=== PATIENT | male | born 1995 | race Caucasian/White ===

== ENCOUNTER 2021-10-27 06:53 | Emergency (ER) | payer OTHER ==
[2021-10-27 07:24] LABS: BASOPHIL 0.2 % (0-2); EOSINOPHIL 0.6 % (0-5); HCT 41.8 % (42.0-52.0); HGB 14.2 g/dl (13.2-18.0); LYMPHOCYTE 41.8 % (15-48); MCH 28.2 pg (25.0-31.0); MCV 82.9 fL (78.0-100.0); MONOCYTE 6.9 % (0-12); NEUTROPHIL 50.1 % (41-80); NRBC 0; PLT 281 K/uL (150-400); RBC 5.04 M/uL (4.70-6.00); RDW 12.1 % (11.5-14.0); WBC 8.1 K/uL (4.0-10.5)
[2021-10-27 09:43] LABS: BUN/CREAT RATIO (CALC) 16.3 RATIO; CREATININE 0.86 mg/dL (0.67-1.17); GLOBULIN (CALCULATION) 2.6 g/dL; POTASSIUM 3.2 mmol/L (3.5-5.1); TOTAL PROTEIN 6.6 g/dL (6.4-8.2)
[2021-10-27 15:59] LABS: BILIRUBIN - TOTAL 0.3 mg/dL (0.2-1.0)
== END 2021-10-27 09:28 | disposition other institution (70) ==
LOC: FER 06:53
PROVIDERS: Internal Medicine
DX: S27.0XXA Traumatic pneumothorax, initial encounter (principal); S22.42XA Multiple fractures of ribs, left side, initial encounter for closed fracture; S80.212A Abrasion, left knee, initial encounter; S80.211A Abrasion, right knee, initial encounter; S00.31XA Abrasion of nose, initial encounter; Z23 Encounter for immunization; Z28.310 Unvaccinated for COVID-19; V49.40XA Driver injured in collision with unspecified motor vehicles in traffic accident, initial encounter
CPT/HCPCS: 36415; 70450; 70486; 71045; 71275; 72125; 72128; 72131; 73560; 80053; 85025; 90471; 90715; 96374; 96375; 96376; J2060; J2250; J3010; Q9967